=== PATIENT | male | born 1995 | race African-American/Black ===

== ENCOUNTER 2020-07-19 13:41 | Emergency (ER) | payer OTHER ==
[~2020-07-19] VITALS: Ht 167.6 cm; Wt 59.0 kg
[2020-07-19 15:30] VITALS: BP 126/72
[2020-07-19] MEDS ORDERED: PRED50TA PO (15:42)
[2020-07-19] MEDS ORDERED: FAMO-63 PO (15:42)
--- NOTE | 2020-07-19 15:43 | ED.ADGEN ---
General Adult EDM: Chief Complaint: ALLERGIC REACTION HPI: HPI: Patient is 24-year-old male with no past medical history who presents to the emergency room complaining of allergic reaction. Patient states that a couple of hours ago he had onset where he felt like he could not breathe and then started having diffuse itching. He noticed a rash on the back of his neck and bilateral arms. He denies any new exposures. He has never had a reaction like this before. He states that the shortness of breath is now gone away.. He states it did feel like his throat was swelling before but this is now resolved. He just feels very itchy all over. He states the rash is also improved. He h as not tried to take anything prior to arrival. Review of Systems: Review of Systems: Complete ROS is negative unless otherwise documented in HPI Current Medications: Current Medications Medications (Trade) Dose Ordered Sig/Evy Start Time Stop Time Status Last Admin Dose Admin Dexamethasone (Decadron) 10 mg 1X ONCE 07/19/20 15:45 07/19/20 15:50 DC 07/19/20 15:54 10 MG Hydroxyzine HCl (Atarax) 25 mg STK-MED ONCE 07/19/20 15:45 07/19/20 15:50 DC Allergies: Allergies: Allergies Coded Allergies Type Severity Reaction Last Updated Verified No Known Drug Allergies 07/19/20 No Physical Exam: PE: General: Awake, alert, NAD. Well Nourished, well hydrated. Cooperative HEENT: Atraumatic, EOMI, PERRL, airway patent, moist oral mucosa, no swelling of the oropharynx Neck: Supple, trachea midline Respiratory: CTA bilaterally, normal effort, no wheezing/crackles CV: RRR, no murmur, cap refill <2 GI: Soft, nondistended, nontender, no masses MSK: No obvious deformities Skin: Warm, dry, excoriations, small patches of hives to bilateral inner arms and chest Neuro: A&O x3, speech NL, sensory and motor grossly intact, no focal deficits Psych: Normal affect, anxious, not suicidal or homicidal Current Patient Data: Vital Signs: Vital Signs Date Time Temp Pulse Resp B/P (MAP) Pulse Ox O2 Delivery O2 Flow Rate FiO2 07/19/20 15:30 98.1 78 20 126/72 (90) 100 Room Air 98.1 EKG: EKG: [] Heart Score: C/O Chest Pain: N/A Risk Factors: Risk Factors: DM, Current or recent (<one month) smoker, HTN, HLP, family history of CAD, obesity. Risk Scores: Score 0 - 3: 2.5% MACE over next 6 weeks - Discharge Home Score 4 - 6: 20.3% MACE over next 6 weeks - Admit for Clinical Observation Score 7 - 10: 72.7% MACE over next 6 weeks - Early Invasive Strategies Radiology/Procedures: Radiology/Procedures: [] Course & Med Decision Making: Course & Med Decision Making Pertinent Labs and Imaging studies reviewed. (See chart for details) Patient is a 24-year-old male who presents to the Emergency Room complaining of []. Patient's presentation is concerning for an allergic reaction. At this time, patient does not or signs of shock that will require epinephrine. Patient will be treated with Decadron, Pepcid, Benadryl and observed here in the emergency room for any further symptoms. Patient's test results and vitals while in the ED were fully reviewed and discussed with the patient. Patient is stable and at this time does not need admission to the hospital. We have discussed strict return precautions and the importance of following up with their Primary Care Physician. Patient stated understanding and was given an opportunity to ask any questions. Patient is in agreement with plan. Momo Disclaimer: Momo Disclaimer: This electronic medical record was generated, in whole or in part, using a voice recognition dictation system. Departure Departure Impression: Primary Impression: Allergic reaction Disposition: HOME / SELF CARE / HOMELESS Condition: STABLE Referrals: NO PCP (PCP) Patient Instructions: Anaphylactic Reaction Additional Instructions: Take Benadryl 50mg at night before bed for 3 days Scripts Prednisone (PREDNISONE) 50 Mg Tablet 1 TAB PO DAILY, #5 TAB Prov: JULIAN BERG MD 07/19/20 Famotidine (PEPCID) 20 Mg Tablet 20 MG PO BID, #30 TAB Prov: JULIAN BERG MD 07/19/20 JULIAN BERG MD July 19, 2020 15:43
[2020-07-19] MEDS ORDERED: hydrOXYzine 25 MG TABLET PO PRN (15:45)
[2020-07-19] MEDS ORDERED: hydrOXYzine 25 MG TABLET ONE (15:45)
[2020-07-19] MEDS ORDERED: DEXAMETHASONE 4 MG TABLET PO ONE (15:45)
== END 2020-07-19 16:00 | disposition home or self-care (01) ==
LOC: ER 13:41
DX: T78.40XA Allergy, unspecified, initial encounter (principal); X58.XXXA Exposure to other specified factors, initial encounter
CPT/HCPCS: 99283; 99285-25